=== PATIENT | female | born 1955 | race Two or more races ===

== ENCOUNTER 2021-01-11 13:57 | Inpatient (IN) | payer BC, OTHER ==
[~2021-01-11] VITALS: Ht 160 cm; Wt 68.0 kg
[2021-01-15 20:00] VITALS: BP 110/77
[2021-01-15] MEDS ORDERED: LOSA50TA39 PO (23:37)
[2021-01-15] MEDS ORDERED: CELE200C PO (23:37)
[2021-01-15] MEDS ORDERED: METO-357 PO (23:37)
[2021-01-15] MEDS ORDERED: ASPI-612 PO (23:37)
[2021-01-16] MEDS ORDERED: OXYCODONE HCL 5 MG TABLET PO PRN (03:00)
[2021-01-16 04:00] VITALS: BP 121/60
[2021-01-16 08:00] VITALS: BP 146/79
[2021-01-16] MEDS: HYDROCODONE/APAP 5-325MG TABLET PO PRN ×2 (10:10→20:27)
[2021-01-16] MEDS ORDERED: CELECOXIB 200 MG CAPSULE PO PRN (12:45)
[2021-01-16 15:20] VITALS: BP 125/68
[2021-01-16 20:00] VITALS: BP 140/74
--- NOTE | 2021-01-16 23:42 | NUR ---
Received report from day shift/. pt lying in bed watching TV, No acute distress noted. C/o 6/10 pain administered [place] PRN, per pt request, effective c/o /10 pain. VSS. Pt left knee dressing intact and wrapped with jaye bandage. Undressed dressing, no s/s of infection no drainage noted. Picture taken and placed in chart. Needs attended to promptly. Pt is continent with bedpan. Safety measures maintained. Call light and all personal belongings within reach. Will continue to monitor.
[2021-01-17 04:00] VITALS: BP 134/72
[2021-01-17 06:35] LABS: HEMATOCRIT 31.4 % (31.2-41.9); MEAN CORPUSCULAR HEMOGLOBIN 32.2 uug (24.7-32.8); MEAN CORPUSCULAR VOLUME 94.5 fL (75.5-95.3); PLATELET COUNT (AUTO) 369 K/uL (179-408)
[2021-01-17 06:46] LABS: CREATININE 0.7 mg/dL (0.6-1.3); MAGNESIUM 2.2 mg/dL (1.8-2.4); PHOSPHOROUS 5.3 mg/dL (2.5-4.9); POTASSIUM 4.2 mmol/L (3.5-5.1)
[2021-01-17 08:00] VITALS: BP 120/67
[2021-01-17] MEDS: METOPROLOL SUCCINATE XL 50 MG TAB.SR.24H PO SCH (09:00)
[2021-01-17] MEDS: LOSARTAN POTASSIUM 50 MG TABLET PO SCH (09:31)
[2021-01-17] MEDS: ASPIRIN 325 MG TABLET PO SCH (09:31)
[2021-01-17] MEDS: HYDROCODONE/APAP 5-325MG TABLET PO PRN ×2 (09:41→20:56)
--- NOTE | 2021-01-17 13:00 | NUR ---
PT NOTE PATIENT ASSISTED TO BATHROOM AND WAS SET UP IN BED WITH CPM ON. PATIENT ABLE TO TOLERATE 75 DEG KNEE FLEXION, PATIENT ON CPM FOR 2HRS PER PROTOCOL, OFF AT 3PM AND NURSING INFORMED PATIENT WILL NEED ASSIST WITH CPM.
--- NOTE | 2021-01-17 14:47 | NUR ---
INTERDISCIPLINARY TEAM CONFERENCE
--- NOTE | 2021-01-17 15:18 | NUR ---
SW Consult: This SW received a consult for applying for disability. This SW met with patient and gave pt [employer] paperworks for pt to fill out. This SW explained it can also be done through online and the website is listed on the form.
[2021-01-17 17:02] VITALS: BP 126/71
[2021-01-17] MEDS: DOCUSATE SODIUM 100 MG CAPSULE PO SCH (20:55)
[2021-01-18 04:55] VITALS: BP 117/60
--- NOTE | 2021-01-18 06:34 | NUR ---
Shift End Report: VS stable. Medicated once for pain with relief. Slept good after. No further complaint presented. All needs attended and met. No significant event reported all night. Continue current rehab plan of care.
[2021-01-18 08:00] VITALS: BP 124/67
[2021-01-18] MEDS: METOPROLOL SUCCINATE XL 50 MG TAB.SR.24H PO SCH (08:32)
[2021-01-18] MEDS: LOSARTAN POTASSIUM 50 MG TABLET PO SCH (08:32)
[2021-01-18] MEDS: ASPIRIN 325 MG TABLET PO SCH (08:32)
[2021-01-18] MEDS: HYDROCODONE/APAP 5-325MG TABLET PO PRN ×2 (09:15→20:27)
[2021-01-18 15:27] VITALS: BP 139/68
--- NOTE | 2021-01-18 15:35 | NUR ---
INDIVIDUALIZED PLAN OF CARE
--- NOTE | 2021-01-18 18:54 | NUR ---
Received patient awake on bed with no respiratory distress noted. Alert and oriented x4, able to make needs known. Toileting assistance rendered with the use of bedpan. Assisted in turning and repositioning as needed. Will continue to monitor.
[2021-01-18 20:00] VITALS: BP 137/74
[2021-01-18] MEDS: DOCUSATE SODIUM 100 MG CAPSULE PO SCH (20:19)
[2021-01-19 04:00] VITALS: BP 114/75
[2021-01-19 08:28] VITALS: BP 131/75
[2021-01-19] MEDS: ASPIRIN 325 MG TABLET PO SCH (09:33)
[2021-01-19] MEDS: METOPROLOL SUCCINATE XL 50 MG TAB.SR.24H PO SCH (09:34)
[2021-01-19] MEDS: LOSARTAN POTASSIUM 50 MG TABLET PO SCH (09:34)
[2021-01-19] MEDS: HYDROCODONE/APAP 5-325MG TABLET PO PRN ×2 (09:47→20:04)
--- NOTE | 2021-01-19 17:49 | NUR ---
Received patient awake on bed with no respiratory distress noted. Alert and oriented x4, able to make needs known. Able to ambulate using a walker with minimal assistance. All needs attended. Will continue to monitor.
[2021-01-19 20:00] VITALS: BP 114/64
[2021-01-19] MEDS: DOCUSATE SODIUM 100 MG CAPSULE PO SCH (20:04)
--- NOTE | 2021-01-19 20:30 | NUR ---
PATIENT AWAKE IN BED. C/O PAIN. PATIENT GIVEN [place] 1 TAB FOR PAIN. DRESSING NOTED TO LEFT KNEE, C/D/I. NO RESP. DISTRESS NOTED. VS WNL. CALL LIGHT IN REACH. ALL NEEDS ATTENDED. WILL CONTINUE TO MONITOR AND ASSESS.
[2021-01-20 04:00] VITALS: BP 119/61
--- NOTE | 2021-01-20 06:51 | NUR ---
PATIENT ASLEEP. SLEPT WELL THROUGHOUT THE NIGHT. CALL LIGHT IN REACH. ALL NEEDS ATTENDED.
[2021-01-20 08:10] VITALS: BP 105/63
[2021-01-20] MEDS: ASPIRIN 325 MG TABLET PO SCH (08:27)
[2021-01-20] MEDS: LOSARTAN POTASSIUM 50 MG TABLET PO SCH (08:27)
[2021-01-20] MEDS: METOPROLOL SUCCINATE XL 50 MG TAB.SR.24H PO SCH (08:30)
--- NOTE | 2021-01-20 08:30 | NUR ---
Patient refused to take metoprolol d/t BP 105/63 and preferred to just take losartan for now.
[2021-01-20] MEDS: HYDROCODONE/APAP 5-325MG TABLET PO PRN ×2 (08:33→20:17)
--- NOTE | 2021-01-20 13:59 | NUR ---
Wound dressing changed on L knee. No s/sx of infection noted.
[2021-01-20 15:21] VITALS: BP 113/55
[2021-01-20 20:00] VITALS: BP 138/71
[2021-01-20] MEDS: DOCUSATE SODIUM 100 MG CAPSULE PO SCH (20:17)
[2021-01-21 04:00] VITALS: BP 123/80
[2021-01-21 08:00] VITALS: BP 120/64
[2021-01-21] MEDS: ASPIRIN 325 MG TABLET PO SCH (08:25)
[2021-01-21] MEDS: LOSARTAN POTASSIUM 50 MG TABLET PO SCH (08:26)
[2021-01-21] MEDS: METOPROLOL SUCCINATE XL 50 MG TAB.SR.24H PO SCH (08:27)
[2021-01-21] MEDS: HYDROCODONE/APAP 5-325MG TABLET PO PRN ×2 (08:55→20:37)
[2021-01-21 16:14] VITALS: BP 132/63
[2021-01-21 20:00] VITALS: BP 126/69
[2021-01-21] MEDS: DOCUSATE SODIUM 100 MG CAPSULE PO SCH (20:16)
[2021-01-22 04:00] VITALS: BP 113/71
[2021-01-22 08:20] VITALS: BP 133/76
[2021-01-22] MEDS: LOSARTAN POTASSIUM 50 MG TABLET PO SCH (08:21)
[2021-01-22] MEDS: METOPROLOL SUCCINATE XL 50 MG TAB.SR.24H PO SCH (08:22)
[2021-01-22] MEDS: ASPIRIN 325 MG TABLET PO SCH (08:24)
[2021-01-22] MEDS: HYDROCODONE/APAP 5-325MG TABLET PO PRN ×2 (09:57→20:35)
[2021-01-22 15:55] VITALS: BP 125/68
[2021-01-22 20:00] VITALS: BP 125/61
[2021-01-22] MEDS: DOCUSATE SODIUM 100 MG CAPSULE PO SCH (20:35)
--- NOTE | 2021-01-23 01:26 | NUR ---
Received pt lying in bed watching TV, No acute distress noted. C/o 6/10 pain administered [place] PRN, per pt request, effective c/o 2/10 pain. VSS. Pt left knee dressing intact. Needs attended to promptly.Safety measures maintained. Call light and all personal belongings within reach. Will continue to monitor.
[2021-01-23 04:00] VITALS: BP 121/65
[2021-01-23 08:00] VITALS: BP 111/61
[2021-01-23] MEDS: ASPIRIN 325 MG TABLET PO SCH (08:16)
[2021-01-23] MEDS: LOSARTAN POTASSIUM 50 MG TABLET PO SCH (08:18)
[2021-01-23] MEDS: METOPROLOL SUCCINATE XL 50 MG TAB.SR.24H PO SCH (08:19)
[2021-01-23] MEDS: HYDROCODONE/APAP 5-325MG TABLET PO PRN ×2 (09:24→20:53)
--- NOTE | 2021-01-23 14:15 | NUR ---
PT NOTE unable to set up pt on CPM post PT tx as pt to have MD follow up. Last CPM setting up to 95 and nursing to f/u with CPM at a later time post MD visit as tolerated.
--- NOTE | 2021-01-23 14:20 | NUR ---
patient left for out side apt for follow up for her knee with surgeon
--- NOTE | 2021-01-23 18:02 | NUR ---
patient came back from outside apt with orthopedic surgeon, devaughn removed, no distress noted
[2021-01-23 18:09] VITALS: BP 135/65
[2021-01-23 20:13] VITALS: BP 123/73
[2021-01-23] MEDS: DOCUSATE SODIUM 100 MG CAPSULE PO SCH (20:53)
--- NOTE | 2021-01-23 22:58 | NUR ---
Received patient sitting on chair with no respiratory distress noted. Ambulated back to bed using a walker with standby assist. C/o 6/10 pain administered [place] PRN, per pt request, effective c/o 2/10 pain. Pt left knee dressing intact. All needs attended. Safety measures maintained. Call light placed within reach. Will continue to monitor.
[2021-01-24 04:42] VITALS: BP 126/67
[2021-01-24 06:21] LABS: HEMATOCRIT 32.5 % (31.2-41.9); MEAN CORPUSCULAR HEMOGLOBIN 31.9 uug (24.7-32.8); MEAN CORPUSCULAR VOLUME 95.6 fL (75.5-95.3); PLATELET COUNT (AUTO) 470 K/uL (179-408)
[2021-01-24 06:55] LABS: THYROID STIMULATING HORMONE 1.601 mIU/mL (0.358-3.740)
[2021-01-24 07:09] LABS: BILIRUBIN,TOTAL 0.6 mg/dL (0.2-1.0); CREATININE 0.6 mg/dL (0.6-1.3); MAGNESIUM 2.1 mg/dL (1.8-2.4); PHOSPHOROUS 4.9 mg/dL (2.5-4.9); POTASSIUM 4.2 mmol/L (3.5-5.1); TOTAL PROTEIN, SERUM 7.1 g/dL (6.4-8.2)
[2021-01-24] MEDS: ASPIRIN 325 MG TABLET PO SCH (08:16)
[2021-01-24] MEDS: LOSARTAN POTASSIUM 50 MG TABLET PO SCH (08:16)
[2021-01-24] MEDS: METOPROLOL SUCCINATE XL 50 MG TAB.SR.24H PO SCH (08:17)
[2021-01-24] MEDS: HYDROCODONE/APAP 5-325MG TABLET PO PRN (09:28)
[2021-01-24 09:38] VITALS: BP 121/51
[2021-01-24 15:56] VITALS: BP 124/70
[2021-01-24] MEDS: DOCUSATE SODIUM 100 MG CAPSULE PO SCH (20:22)
[2021-01-24 21:29] VITALS: BP 141/70
[2021-01-24] MEDS: ACETAMINOPHEN 325 MG TABLET PO PRN (21:49)
--- NOTE | 2021-01-25 06:19 | NUR ---
Patient is a/ox4, no respiratory distress noted. Slept throughout the night, easily arousable and able to make needs known. Left knee dressing intact. All needs attended. Safety measures maintained. Call light placed within reach. Will continue to monitor.
[2021-01-25 08:20] VITALS: BP 123/75
[2021-01-25] MEDS: ASPIRIN 325 MG TABLET PO SCH (08:25)
[2021-01-25] MEDS: LOSARTAN POTASSIUM 50 MG TABLET PO SCH (08:25)
[2021-01-25] MEDS: METOPROLOL SUCCINATE XL 50 MG TAB.SR.24H PO SCH (08:25)
[2021-01-25] MEDS: HYDROCODONE/APAP 5-325MG TABLET PO PRN ×2 (08:34→14:49)
[2021-01-25 16:34] VITALS: BP 113/61
--- NOTE | 2021-01-25 17:58 | NUR ---
no distress noted during shift, participated with PT, OT services
--- NOTE | 2021-01-25 19:15 | NUR ---
Received pt lying in bed talking on the phone, a/ox4 able to make needs known. No respiratory distress noted. Provided ice pack for L knee as requested. All needs attended. Call light placed within reach. Will continue to monitor.
[2021-01-25 20:00] VITALS: BP 126/66
[2021-01-25] MEDS: DOCUSATE SODIUM 100 MG CAPSULE PO SCH (21:19)
[2021-01-26 04:00] VITALS: BP 126/64
[2021-01-26] MEDS: ACETAMINOPHEN 325 MG TABLET PO PRN ×2 (05:47→20:07)
--- NOTE | 2021-01-26 06:25 | NUR ---
Patient slept throughout the night, easily arousable for care and able to make needs known. No respiratory distress noted. Tylenol PRN given and provided ice pack for L knee as requested. All needs attended. Call light placed within reach. Will continue to monitor.
[2021-01-26 08:27] VITALS: BP 136/73
[2021-01-26] MEDS: HYDROCODONE/APAP 5-325MG TABLET PO PRN (09:30)
[2021-01-26] MEDS: ASPIRIN 325 MG TABLET PO SCH (10:08)
[2021-01-26] MEDS: LOSARTAN POTASSIUM 50 MG TABLET PO SCH (10:09)
[2021-01-26] MEDS: METOPROLOL SUCCINATE XL 50 MG TAB.SR.24H PO SCH (10:09)
[2021-01-26 14:41] VITALS: BP 111/67
--- NOTE | 2021-01-26 18:42 | NUR ---
The patient is alert/oriented x4, able to make needs known. No respiratory distress noted. Noted with pain during the start of the shift, PRN pain medication was given as ordered with good effect. Skin intact. Kept patient clean, dry, and comfortable. All needs and concerns attended. All due medications given as ordered. Frequent safety checks done. Will continue to monitor for any significant changes. Endorsed to the next shift.
[2021-01-26] MEDS: DOCUSATE SODIUM 100 MG CAPSULE PO SCH (20:07)
[2021-01-26 20:21] VITALS: BP 101/56
--- NOTE | 2021-01-26 21:41 | NUR ---
Received pt resting in bed. AAO x4. No acute distress noted. C/o mild pain on the left knee, Tylenol PRN given. Due med given as ordered. Safety measures maintained. Call light and personal items within reach. Will continue to monitor.
[2021-01-27 04:00] VITALS: BP 135/75
[2021-01-27 08:00] VITALS: BP 137/80
[2021-01-27] MEDS: METOPROLOL SUCCINATE XL 50 MG TAB.SR.24H PO SCH (08:30)
[2021-01-27] MEDS: LOSARTAN POTASSIUM 50 MG TABLET PO SCH (08:30)
[2021-01-27] MEDS: ASPIRIN 325 MG TABLET PO SCH (08:30)
--- NOTE | 2021-01-27 08:40 | NUR ---
Patient in bed, alert and oriented x 4, no s/s of distress, in room air saturating at 95%. All needs met promptly. Patient is pleasant and cooperative upon assessment. Placed call light within easy reach. . All due meds given per MD order.
[2021-01-27] MEDS: HYDROCODONE/APAP 5-325MG TABLET PO PRN (09:41)
[2021-01-27 16:18] VITALS: BP 113/56
--- NOTE | 2021-01-27 16:30 | NUR ---
Family came to visit for an hour.
[2021-01-27 20:06] VITALS: BP 135/78
[2021-01-27] MEDS: DOCUSATE SODIUM 100 MG CAPSULE PO SCH (20:29)
--- NOTE | 2021-01-27 20:59 | NUR ---
Received pt sitting on the chair and talking on the phone. AAO x4. No acute distress noted. Denies pain/ discomfort. Due med given as ordered. Safety measures maintained. Call light and personal items within reach. Will continue to monitor.
[2021-01-28 05:12] VITALS: BP 130/72
[2021-01-28] MEDS: HYDROCODONE/APAP 5-325MG TABLET PO PRN ×2 (06:33→21:28)
[2021-01-28 08:00] VITALS: BP 141/80
[2021-01-28] MEDS: ASPIRIN 325 MG TABLET PO SCH (08:30)
[2021-01-28] MEDS: LOSARTAN POTASSIUM 50 MG TABLET PO SCH (08:31)
[2021-01-28] MEDS: METOPROLOL SUCCINATE XL 50 MG TAB.SR.24H PO SCH (08:35)
[2021-01-28 16:32] VITALS: BP 117/56
--- NOTE | 2021-01-28 18:06 | NUR ---
no changes noted during shift, participated with PT, OT services, tolerated well
[2021-01-28 19:46] VITALS: BP 132/66
[2021-01-28] MEDS: DOCUSATE SODIUM 100 MG CAPSULE PO SCH (20:03)
--- NOTE | 2021-01-28 20:28 | NUR ---
Received pt resting in bed and talking on the phone. AAO x4. No acute distress noted. Denies pain/ discomfort. Due med given as ordered. Safety measures maintained. Call light and personal items within reach. Will continue to monitor.
[2021-01-29 06:24] VITALS: BP 132/81
[2021-01-29 07:53] VITALS: BP 138/82
[2021-01-29] MEDS: METOPROLOL SUCCINATE XL 50 MG TAB.SR.24H PO SCH (08:36)
[2021-01-29] MEDS: ASPIRIN 325 MG TABLET PO SCH (08:36)
[2021-01-29] MEDS: LOSARTAN POTASSIUM 50 MG TABLET PO SCH (08:36)
[2021-01-29] MEDS: HYDROCODONE/APAP 5-325MG TABLET PO PRN (12:31)
--- NOTE | 2021-01-29 15:30 | NUR ---
Patient discharged via private car on a wheelchair accompanied by her family. Patient is alert/oriented x 4, able to make needs known. Not in any distress. Denies pain/discomfort. Skin is intact. All needs attended and due medications given prior to discharge. Discharge instructions given, noted with understanding. MD aware.
[2021-01-29 16:30] VITALS: BP 117/65
== END 2021-01-29 15:30 | disposition home health service (06) | DRG 560 ==
PROVIDERS: ADMIT Physical Medicine & Rehabilitation Pain Medicine; ATTEND Physical Medicine & Rehabilitation Pain Medicine
DX: Z47.1 Aftercare following joint replacement surgery (principal); E87.1 Hypo-osmolality and hyponatremia; I10 Essential (primary) hypertension; Z96.652 Presence of left artificial knee joint; M17.12 Unilateral primary osteoarthritis, left knee; D64.9 Anemia, unspecified; E78.5 Hyperlipidemia, unspecified; E86.1 Hypovolemia; G56.00 Carpal tunnel syndrome, unspecified upper limb; G89.29 Other chronic pain; E66.9 Obesity, unspecified; Z68.26 Body mass index [BMI] 26.0-26.9, adult
CPT/HCPCS: 36415; 83550; 83735; 84100; 84443; 85025

== ENCOUNTER 2022-02-15 14:23 | Inpatient (IN) | payer BC, OTHER ==
[~2022-02-15] VITALS: Ht 162.6 cm; Wt 69.9 kg
[~2022-02-15 14:23] MED LIST: ASPI-612 PO; CELE200C PO; LOSA50TA39 PO; METO-357 PO
[2022-02-15] MEDS ORDERED: DOCU-141 PO (18:26)
[2022-02-15] MEDS ORDERED: ACET-2154 PO (18:26)
[2022-02-15] MEDS ORDERED: BISA10SU61 RC (18:26)
[2022-02-15] MEDS ORDERED: SENN-261 PO (18:26)
[2022-02-15] MEDS ORDERED: MAGN400O6 PO (18:26)
[2022-02-15] MEDS ORDERED: MAG30ORA PO (18:26)
[2022-02-15] MEDS ORDERED: BENZ1LOZ58 MM (18:31)
[2022-02-15] MEDS ORDERED: HYDROCODONE/APAP 5-325MG TABLET PO PRN (18:45)
--- NOTE | 2022-02-15 18:55 | NUR ---
Patient admitted from [facility] for right knee, arthroplasty, alert, oriented x4, verbally responsive, no sob, no acute distress noted, no skin issues noted, except right knee insicion site. dr sammy bass.
[2022-02-15 18:58] VITALS: BP 128/67
[2022-02-15] MEDS ORDERED: SENNOSIDES 1 TABLET PO PRN (21:15)
[2022-02-15] MEDS ORDERED: MAGNESIUM HYDROXIDE 30 ML LIQUID UDC PO PRN (21:15)
[2022-02-15] MEDS ORDERED: MAG HYDROX/AL HYDROX/SIMETH 30 ML LIQUID UDC PO PRN (21:15)
[2022-02-15] MEDS ORDERED: BENZOCAINE/MENTH/CETYLPYRD LOZENGE MM PRN (21:15)
[2022-02-15] MEDS ORDERED: BISACODYL 10 MG SUPP.RECT RC PRN (21:15)
[2022-02-15] MEDS ORDERED: ACETAMINOPHEN 325 MG TABLET PO PRN (21:30)
[2022-02-15] MEDS: HYDROCODONE/APAP 5-325MG TABLET PO PRN (21:57)
[2022-02-16] MEDS: HYDROCODONE/APAP 5-325MG TABLET PO PRN (04:18)
[2022-02-16 04:50] VITALS: BP 134/69
[2022-02-16] MEDS ORDERED: HYDROCODONE/APAP 5-325MG TABLET PO PRN (08:00)
[2022-02-16 08:08] VITALS: BP 138/68
[2022-02-16] MEDS ORDERED: MAG HYDROX/AL HYDROX/SIMETH 30 ML LIQUID UDC PO PRN (08:18)
[2022-02-16] MEDS: HYDROCODONE/APAP 10-325 MG TABLET PO PRN ×2 (09:24→16:16)
[2022-02-16] MEDS: ASPIRIN 325 MG TABLET PO SCH (09:25)
[2022-02-16] MEDS: DOCUSATE SODIUM 100 MG CAPSULE PO SCH ×2 (09:25→16:38)
[2022-02-16 16:00] VITALS: BP 122/68
[2022-02-16 19:59] VITALS: BP 128/66
[2022-02-16] MEDS: OXYCODONE HCL 10 MG TAB.SR.12H PO SCH (20:58)
[2022-02-17] MEDS: HYDROCODONE/APAP 10-325 MG TABLET PO PRN ×6 (04:31→22:25)
[2022-02-17 04:38] VITALS: BP 125/64
[2022-02-17] MEDS: OXYCODONE HCL 10 MG TAB.SR.12H PO SCH ×3 (08:27→20:34)
[2022-02-17] MEDS: ASPIRIN 325 MG TABLET PO SCH (08:34)
[2022-02-17] MEDS: DOCUSATE SODIUM 100 MG CAPSULE PO SCH ×2 (08:34→17:42)
--- NOTE | 2022-02-17 08:54 | NUR ---
refused oxycodone for pain med she says it is too strong. she prefers to take norco. oxy wasted in [place]
[2022-02-17 17:17] VITALS: BP 123/59
--- NOTE | 2022-02-17 21:00 | NUR ---
Refused to take Oxycodone, she stated it makes her dizzy. She prefer [place] if in pain. Ice pack applied over the surgical site.
[2022-02-18] MEDS: HYDROCODONE/APAP 10-325 MG TABLET PO PRN ×4 (04:54→20:18)
--- NOTE | 2022-02-18 06:07 | NUR ---
Slept intermittently, complaint of pain 3 times, received [place] 5-325mg PO 3 times within the shift. Able to slept after an hour of administration. [place] Po given, with bowel movement x1. Ice apck applied ove the surgical site the whole night, for continuity of care.
[2022-02-18 07:35] VITALS: BP 101/60
[2022-02-18] MEDS: ASPIRIN 325 MG TABLET PO SCH (08:02)
[2022-02-18] MEDS: OXYCODONE HCL 10 MG TAB.SR.12H PO SCH ×2 (08:02→20:12)
[2022-02-18] MEDS: DOCUSATE SODIUM 100 MG CAPSULE PO SCH ×2 (08:02→16:09)
[2022-02-18] MEDS: ARGININE/GLUTAMINE/CALCIUM BMB 1 EACH POWD.PACK PO SCH ×2 (12:02→16:09)
[2022-02-18] MEDS: ENSURE ENLIVE (VAN) 240 ML LIQUID PO SCH (12:02)
--- NOTE | 2022-02-18 15:05 | NUR ---
INDIVIDUALIZED PLAN OF CARE
[2022-02-18 15:55] VITALS: BP 107/56
--- NOTE | 2022-02-18 20:13 | NUR ---
patient asked for medication for pain she has OxyContin on schedule she refused ,she wants [place] instead.
[2022-02-18 20:30] VITALS: BP 126/66
--- NOTE | 2022-02-19 04:35 | NUR ---
AAOx4 Admitted for a right total knee arthroplasty. VSS Needs attended. Right knee dressing clean dry and intact. No acute distress noted. Pain meds given as needed. Patient prefers [place] instead of scheduled Oxycontin. Relief noted. Continent of bowel and bladder. No BM this shift. Will monitor patient. Fall precautions maintained. Siderails up for safety.
[2022-02-19] MEDS: HYDROCODONE/APAP 10-325 MG TABLET PO PRN ×5 (04:40→21:27)
[2022-02-19 05:25] VITALS: BP 106/61
[2022-02-19 08:00] VITALS: BP 118/61
[2022-02-19] MEDS: ASPIRIN 325 MG TABLET PO SCH (08:17)
[2022-02-19] MEDS: ENSURE ENLIVE (VAN) 240 ML LIQUID PO SCH (08:18)
[2022-02-19] MEDS: ARGININE/GLUTAMINE/CALCIUM BMB 1 EACH POWD.PACK PO SCH ×2 (08:18→16:43)
[2022-02-19] MEDS: OXYCODONE HCL 10 MG TAB.SR.12H PO SCH ×2 (08:18→20:36)
[2022-02-19] MEDS: DOCUSATE SODIUM 100 MG CAPSULE PO SCH ×2 (08:18→16:43)
[2022-02-19 16:00] VITALS: BP 124/61
[2022-02-19 20:00] VITALS: BP 116/63
[2022-02-20] MEDS: HYDROCODONE/APAP 10-325 MG TABLET PO PRN ×5 (02:35→20:43)
--- NOTE | 2022-02-20 03:57 | NUR ---
Resting in bed upon initial rounds. AAOx4 Needs attended. VSS.' OOB to the BR with walker. Voiding well. Medicated with [place] as ordered with relief noted. Fall precautions maintained. Siderails up for safety. Right leg with jaye wrap dressing clean dry and intact. No distress noted.
[2022-02-20 04:00] VITALS: BP 134/79
[2022-02-20 06:51] LABS: HEMATOCRIT 30.3 % (31.2-41.9); MEAN CORPUSCULAR HEMOGLOBIN 31.8 uug (24.7-32.8); MEAN CORPUSCULAR VOLUME 93.8 fL (75.5-95.3); PLATELET COUNT (AUTO) 319 K/uL (179-408)
[2022-02-20 07:40] LABS: BILIRUBIN,TOTAL 0.9 mg/dL (0.2-1.0); CREATININE 0.7 mg/dL (0.6-1.3); PHOSPHOROUS 4.3 mg/dL (2.5-4.9); POTASSIUM 3.8 mmol/L (3.5-5.1); TOTAL PROTEIN, SERUM 7.2 g/dL (6.4-8.2)
[2022-02-20 07:46] VITALS: BP 119/70
[2022-02-20] MEDS: ARGININE/GLUTAMINE/CALCIUM BMB 1 EACH POWD.PACK PO SCH ×2 (08:27→16:09)
[2022-02-20] MEDS: DOCUSATE SODIUM 100 MG CAPSULE PO SCH ×2 (08:27→15:33)
[2022-02-20] MEDS: ENSURE ENLIVE (VAN) 240 ML LIQUID PO SCH (08:27)
[2022-02-20] MEDS: ASPIRIN 325 MG TABLET PO SCH (08:27)
[2022-02-20] MEDS: OXYCODONE HCL 10 MG TAB.SR.12H PO SCH ×2 (08:27→20:44)
[2022-02-20 09:11] LABS: MAGNESIUM 2.1 mg/dL (1.8-2.4)
--- NOTE | 2022-02-20 15:19 | NUR ---
INTERDISCIPLINARY TEAM CONFERENCE
[2022-02-20 16:00] VITALS: BP 124/60
[2022-02-20 20:48] VITALS: BP 135/75
[2022-02-21 04:52] VITALS: BP 123/60
[2022-02-21] MEDS: HYDROCODONE/APAP 10-325 MG TABLET PO PRN ×4 (06:09→20:58)
[2022-02-21 07:48] VITALS: BP 103/54
[2022-02-21] MEDS: DOCUSATE SODIUM 100 MG CAPSULE PO SCH ×2 (08:24→16:43)
[2022-02-21] MEDS: ASPIRIN 325 MG TABLET PO SCH (08:24)
[2022-02-21] MEDS: ENSURE ENLIVE (VAN) 240 ML LIQUID PO SCH (08:28)
[2022-02-21] MEDS: OXYCODONE HCL 10 MG TAB.SR.12H PO SCH ×2 (08:29→20:58)
[2022-02-21] MEDS: ARGININE/GLUTAMINE/CALCIUM BMB 1 EACH POWD.PACK PO SCH ×2 (08:29→16:49)
[2022-02-21 15:13] VITALS: BP 130/76
--- NOTE | 2022-02-21 18:00 | NUR ---
Spoke to Dr. Alonso office to see if this RN can remove original dressing and jaye wrap from right knee. Per staff patient is to keep original bandaging until Friday when she has her follow up at 3:15 pm. Patient to have xray of right knee on Friday and take CD to apt. manager star made aware.
[2022-02-21 20:00] VITALS: BP 136/74
[2022-02-22 04:00] VITALS: BP 105/53
[2022-02-22] MEDS: HYDROCODONE/APAP 10-325 MG TABLET PO PRN ×3 (06:15→17:52)
[2022-02-22 08:14] VITALS: BP 117/57
[2022-02-22] MEDS: OXYCODONE HCL 10 MG TAB.SR.12H PO SCH ×2 (09:00→21:00)
[2022-02-22] MEDS: DOCUSATE SODIUM 100 MG CAPSULE PO SCH ×3 (09:00→17:20)
[2022-02-22] MEDS: ENSURE ENLIVE (VAN) 240 ML LIQUID PO SCH (09:00)
[2022-02-22] MEDS: ARGININE/GLUTAMINE/CALCIUM BMB 1 EACH POWD.PACK PO SCH ×2 (09:00→17:20)
[2022-02-22] MEDS: ASPIRIN 325 MG TABLET PO SCH (10:01)
[2022-02-22 16:09] VITALS: BP 121/59
[2022-02-22 20:00] VITALS: BP 118/66
--- NOTE | 2022-02-22 21:13 | NUR ---
Still refusing Oxycodone, prefer [place] for pain. Will endorse in the morning.
[2022-02-23] MEDS: HYDROCODONE/APAP 10-325 MG TABLET PO PRN ×4 (03:51→20:37)
[2022-02-23 03:52] VITALS: BP 113/69
[2022-02-23 07:30] VITALS: BP 125/72
[2022-02-23] MEDS: OXYCODONE HCL 10 MG TAB.SR.12H PO SCH (09:00)
[2022-02-23] MEDS: ASPIRIN 325 MG TABLET PO SCH (09:07)
[2022-02-23] MEDS: DOCUSATE SODIUM 100 MG CAPSULE PO SCH ×2 (09:07→17:13)
[2022-02-23] MEDS: ARGININE/GLUTAMINE/CALCIUM BMB 1 EACH POWD.PACK PO SCH ×2 (09:10→17:15)
[2022-02-23] MEDS: ENSURE ENLIVE (VAN) 240 ML LIQUID PO SCH (09:10)
[2022-02-23 16:00] VITALS: BP 128/72
[2022-02-23 20:59] VITALS: BP 109/73
[2022-02-24] MEDS: HYDROCODONE/APAP 10-325 MG TABLET PO PRN ×4 (03:07→21:13)
--- NOTE | 2022-02-24 04:20 | NUR ---
no events noted overnight.
[2022-02-24 04:55] VITALS: BP 126/62
[2022-02-24] MEDS: ASPIRIN 325 MG TABLET PO SCH (08:05)
[2022-02-24] MEDS: DOCUSATE SODIUM 100 MG CAPSULE PO SCH ×2 (08:05→17:05)
[2022-02-24] MEDS: ENSURE ENLIVE (VAN) 240 ML LIQUID PO SCH (08:07)
[2022-02-24] MEDS: ARGININE/GLUTAMINE/CALCIUM BMB 1 EACH POWD.PACK PO SCH ×2 (08:07→17:05)
[2022-02-24 08:11] VITALS: BP 125/65
[2022-02-24 16:00] VITALS: BP 132/73
[2022-02-24 20:38] VITALS: BP 130/67
[2022-02-25 04:17] VITALS: BP 144/73
[2022-02-25] MEDS: HYDROCODONE/APAP 10-325 MG TABLET PO PRN ×4 (04:24→21:35)
[2022-02-25] MEDS: ASPIRIN 325 MG TABLET PO SCH (08:31)
[2022-02-25] MEDS: DOCUSATE SODIUM 100 MG CAPSULE PO SCH ×2 (08:31→16:58)
[2022-02-25] MEDS: ENSURE ENLIVE (VAN) 240 ML LIQUID PO SCH (08:31)
[2022-02-25] MEDS: ARGININE/GLUTAMINE/CALCIUM BMB 1 EACH POWD.PACK PO SCH ×2 (08:32→16:58)
--- NOTE | 2022-02-25 14:10 | NUR ---
Patient transferred by [facility] ambulance to Orthopedic surgeon, Dr. Alonso, office with Xray CD from 02/24/22 right knee.
[2022-02-25 15:18] VITALS: BP 136/74
--- NOTE | 2022-02-25 16:00 | NUR ---
Patient returned from Dr. Alonso office and states she was not able to see Dr. Alonso and address her bandage. Curt wrap bandage noted to be loose and coming off. Spoke to Sheba Perez medical laboratory technician to Dr. Alonso and she stated its okay to use island dressing not and remove curt wrap bandage,
[2022-02-25 20:24] VITALS: BP 125/54
[2022-02-26 04:00] VITALS: BP 151/79
[2022-02-26] MEDS: HYDROCODONE/APAP 10-325 MG TABLET PO PRN ×3 (06:07→21:15)
[2022-02-26 06:40] LABS: HEMATOCRIT 29.3 % (31.2-41.9); MEAN CORPUSCULAR HEMOGLOBIN 31.9 uug (24.7-32.8); MEAN CORPUSCULAR VOLUME 93.4 fL (75.5-95.3); PLATELET COUNT (AUTO) 431 K/uL (179-408)
[2022-02-26 07:01] LABS: BILIRUBIN,TOTAL 0.5 mg/dL (0.2-1.0); CREATININE 0.8 mg/dL (0.6-1.3); MAGNESIUM 2.1 mg/dL (1.8-2.4); PHOSPHOROUS 4.9 mg/dL (2.5-4.9); POTASSIUM 4.2 mmol/L (3.5-5.1); TOTAL PROTEIN, SERUM 7.2 g/dL (6.4-8.2)
[2022-02-26 07:06] LABS: THYROID STIMULATING HORMONE 1.511 mIU/mL (0.358-3.740)
[2022-02-26 08:00] VITALS: BP 128/74
[2022-02-26] MEDS: ASPIRIN 325 MG TABLET PO SCH (08:46)
[2022-02-26] MEDS: DOCUSATE SODIUM 100 MG CAPSULE PO SCH ×2 (08:46→16:50)
[2022-02-26] MEDS: ENSURE ENLIVE (VAN) 240 ML LIQUID PO SCH (08:51)
[2022-02-26] MEDS: ARGININE/GLUTAMINE/CALCIUM BMB 1 EACH POWD.PACK PO SCH ×2 (08:52→17:01)
[2022-02-26 16:00] VITALS: BP 130/77
--- NOTE | 2022-02-26 18:18 | NUR ---
Order for 1 unit of blood transfusion was obtain from Dr. Tucker today but then realize that Hemoglobin was 10.0 so blood was not given. Called Dr. Tucker for clarification. Sn awaiting returned call. Patient complain of pain. Pain level 6/10. [place] administered at 5pm with noted relief.Patient remains comfortable. No signs of acute distress noted, resting on room air. Tolerated 2 hours of CPM 0-95 degrees.
--- NOTE | 2022-02-26 18:46 | NUR ---
Dr. Camp called back and he agreed to D/C blood transfusion order. Order discontinued.
[2022-02-26 20:00] VITALS: BP 122/62
[2022-02-27 04:00] VITALS: BP 102/51
[2022-02-27] MEDS: HYDROCODONE/APAP 10-325 MG TABLET PO PRN ×3 (06:46→20:27)
[2022-02-27] MEDS: DOCUSATE SODIUM 100 MG CAPSULE PO SCH ×2 (08:38→16:32)
[2022-02-27] MEDS: ASPIRIN 325 MG TABLET PO SCH (08:38)
[2022-02-27] MEDS: ARGININE/GLUTAMINE/CALCIUM BMB 1 EACH POWD.PACK PO SCH ×2 (08:40→18:45)
[2022-02-27] MEDS: ENSURE ENLIVE (VAN) 240 ML LIQUID PO SCH (08:40)
[2022-02-27] MEDS: GLUCERNA SHAKE 237 ML CAN PO SCH (12:33)
[2022-02-27 14:59] VITALS: BP 139/81
--- NOTE | 2022-02-27 15:39 | NUR ---
INTERDISCIPLINARY TEAM CONFERENCE
--- NOTE | 2022-02-27 18:40 | NUR ---
Patient remains alert, oriented x 4, not in any form of distress, on room air. She complained of right knee pain given PRN pain medication as ordered with noted relief. She went for follow up with Dr. Salazar (Ortho) with no new order. Patient came back with surgical incision site kept open to air. Incision site is clean and dry, no redness, well coaptated. Assisted with her needs. Call light and frequently used items placed within patient's reach.
[2022-02-27 20:37] VITALS: BP 120/72
[2022-02-28 08:00] VITALS: BP 110/69
[2022-02-28] MEDS: DOCUSATE SODIUM 100 MG CAPSULE PO SCH ×2 (09:13→16:03)
[2022-02-28] MEDS: ASPIRIN 325 MG TABLET PO SCH (09:13)
[2022-02-28] MEDS: ARGININE/GLUTAMINE/CALCIUM BMB 1 EACH POWD.PACK PO SCH ×2 (09:14→16:03)
[2022-02-28] MEDS: GLUCERNA SHAKE 237 ML CAN PO SCH (09:14)
[2022-02-28 12:00] VITALS: BP 101/50
[2022-02-28 15:42] VITALS: BP 131/74
[2022-02-28] MEDS: HYDROCODONE/APAP 10-325 MG TABLET PO PRN ×2 (16:03→22:54)
--- NOTE | 2022-02-28 18:34 | NUR ---
Pt is a/o x 4, no complaints of pain at this time. Comfort measures provided. Plan is to discharge pt home tomorrow. Will endorse.
[2022-02-28 20:00] VITALS: BP 128/72
[2022-03-01 04:00] VITALS: BP 113/58
--- NOTE | 2022-03-01 04:52 | NUR ---
AAOx4 All needs attended. Ambulates with walker to the BR. Voiding well. No acute distress noted. Kept comfortable. VSS. Medicated with 1 tab of [place] as ordered with relief noted. Fall precautions maintained. Possible d/c to home today.
--- NOTE | 2022-03-01 07:01 | NUR ---
LATE ENTRY: [place] 1 TAB GIVEN @ 0650AM (02/28/2022) ON PAPER MAR. System was down.
[2022-03-01 09:06] VITALS: BP 119/69
[2022-03-01] MEDS: HYDROCODONE/APAP 10-325 MG TABLET PO PRN ×2 (09:37→11:39)
[2022-03-01] MEDS: DOCUSATE SODIUM 100 MG CAPSULE PO SCH (09:37)
[2022-03-01] MEDS: ASPIRIN 325 MG TABLET PO SCH (09:37)
[2022-03-01] MEDS: ARGININE/GLUTAMINE/CALCIUM BMB 1 EACH POWD.PACK PO SCH (09:40)
[2022-03-01] MEDS: GLUCERNA SHAKE 237 ML CAN PO SCH (09:40)
--- NOTE | 2022-03-01 15:41 | NUR ---
[place] given @0900, pain level stated by patient 10/21. Patient is alert and oriented x3. She is verbal, can make eye contact. Able to make her needs known with no SOB nor acute distress noted. Pain level effective when evaluated later. Wound care provided on right knee replacement and pictures taken, placed in patient chart. Patient discharged @315pm, she got picked up by family. All discharge instruction and paper works given and signed. Patient verbalize understanding on all instructions.
== END 2022-03-01 15:28 | disposition home health service (06) | DRG 560 ==
PROVIDERS: ADMIT Physical Medicine & Rehabilitation Pain Medicine; ATTEND Physical Medicine & Rehabilitation Pain Medicine
DX: Z47.1 Aftercare following joint replacement surgery (principal); D68.59 Other primary thrombophilia; E44.0 Moderate protein-calorie malnutrition; I10 Essential (primary) hypertension; M17.11 Unilateral primary osteoarthritis, right knee; Z96.653 Presence of artificial knee joint, bilateral; D64.9 Anemia, unspecified; E66.9 Obesity, unspecified; Z68.26 Body mass index [BMI] 26.0-26.9, adult; R73.9 Hyperglycemia, unspecified
CPT/HCPCS: 36415; 83735; 84100; 84443; 85025; 97161; 97535-GO-CO; A4663